=== PATIENT | female | born 1935 | race Caucasian/White ===

== ENCOUNTER 2017-02-25 10:54 | Emergency (ER) | payer MEDICARE, OTHER ==
[~2017-02-25 10:54] MED LIST: ANTIVERT 25MG T25 MG PO; ASPIR 8181 MG PO; COZAAR 25MG TAB25 MG PO; GLUCOPHAGE1000 MG PO; VITAMIN D400 UNIT PO
[2017-02-25 11:14] LABS: HEMOGLOBIN 11.9 gm/dl (12.3-15.3); RED BLOOD COUNT 3.8 M/UL (4.00-5.10); WHITE BLOOD COUNT 16.2 K/UL (4.5-11.0)
[2017-02-25 11:43] LABS: BUN/CREATININE RATIO 11 (0-10)
[2017-06-01] MEDS ORDERED: VITAMIN D250000 UNIT PO (21:19)
[2017-06-01] MEDS ORDERED: LIPITOR TAB 2020 MG PO (21:20)
== END 2017-02-25 12:59 | disposition short-term general hospital (02) ==
LOC: ER1 10:54
PROVIDERS: Emergency Medicine
DX: G45.9 Transient cerebral ischemic attack, unspecified (principal); D72.829 Elevated white blood cell count, unspecified; E11.9 Type 2 diabetes mellitus without complications; Z79.84 Long term (current) use of oral hypoglycemic drugs; Z79.82 Long term (current) use of aspirin; Z79.899 Other long term (current) drug therapy
CPT/HCPCS: 36415; 70450; 71010; 80053; 82550; 82553; 83735; 83874; 84484; 85025; 85610; 85730; 87040; 93005; 96374; 99285; J0696; J7050

== ENCOUNTER 2017-03-11 19:18 | Emergency (ER) | payer MEDICARE, OTHER ==
[2017-03-11 21:03] LABS: HEMOGLOBIN 12.1 gm/dl (12.3-15.3); RED BLOOD COUNT 3.9 M/UL (4.00-5.10); WHITE BLOOD COUNT 7.9 K/UL (4.5-11.0)
[2017-03-11 21:23] LABS: BUN/CREATININE RATIO 11 (0-10)
[2017-06-01] MEDS ORDERED: VITAMIN D250000 UNIT PO (21:19)
[2017-06-01] MEDS ORDERED: LIPITOR TAB 2020 MG PO (21:20)
== END 2017-03-12 01:25 | disposition short-term general hospital (02) ==
LOC: ER1 19:18
PROVIDERS: Student in an Organized Health Care Education/Training Program
DX: I63.9 Cerebral infarction, unspecified (principal); F41.9 Anxiety disorder, unspecified; R11.0 Nausea; E11.9 Type 2 diabetes mellitus without complications; F03.90 Unspecified dementia, unspecified severity, without behavioral disturbance, psychotic disturbance, mood disturbance, and anxiety; Z88.8 Allergy status to other drugs, medicaments and biological substances; Z79.84 Long term (current) use of oral hypoglycemic drugs; Z79.82 Long term (current) use of aspirin; Z79.899 Other long term (current) drug therapy
CPT/HCPCS: 36415; 51701; 70450; 71010; 80053; 81001; 82550; 82553; 82962; 83690; 83874; 84484; 85025; 85610; 85730; 87086; 93005; 96374; 96375; 96376; 99285; J2060; J2405

== ENCOUNTER 2021-02-24 15:44 | Observation (INO) | payer MEDICARE, MEDICAID, OTHER ==
[~2021-02-24] VITALS: Ht 157.5 cm; Wt 59.0 kg
[~2021-02-24 15:44] MED LIST changes: +ATIVAN 1MG TABLE1 MG PO; +BENADRYL25 MG PO; +FLONASE 0.05% N16 GM; +LIPITOR TAB 2020 MG PO; +MIRALAX17 GM PO; +SINGULAIR10 MG PO; +VITAMIN D250000 UNIT PO
[2021-02-24 16:32] LABS: HEMOGLOBIN 11.1 gm/dl (12.3-15.3); RED BLOOD COUNT 3.5 M/UL (4.00-5.10); WHITE BLOOD COUNT 4.8 K/UL (4.5-11.0)
[2021-02-24 17:07] LABS: BUN/CREATININE RATIO 21 (0-10)
[2021-02-24] MEDS ORDERED: IPRAT-ALBUT 0.5-3 ML INH (18:29)
[2021-02-24] MEDS ORDERED: ATIVAN0.5 MG PO (18:30)
[2021-02-24] MEDS ORDERED: SYMBICORT 16010.2 GM INH (18:31)
[2021-02-24] MEDS ORDERED: SPIRIVA HANDIH18 MCG INH (18:32)
[2021-02-24] MEDS ORDERED: TOPROL XL25 MG PO (18:32)
[2021-02-24] MEDS ORDERED: PREDNISONE10 MG PO (18:32)
[2021-02-24] MEDS ORDERED: VENTOLIN HFA 66.7 GM INH (18:33)
[2021-02-24] MEDS ORDERED: VITAMIN D250 MCG PO (18:33)
[2021-02-24] MEDS ORDERED: ATORVASTATIN CA20 MG PO (22:33)
[2021-02-24] MEDS ORDERED: COZAAR 25MG TAB25 MG PO (22:33)
[2021-02-24] MEDS ORDERED: METOPROLOL SUCC25 MG PO (22:34)
[2021-02-24] MEDS ORDERED: HYDROCHLOROTH12.5 MG PO (22:34)
[2021-02-24] MEDS ORDERED: MONTELUKAST SOD10 MG PO (22:34)
[2021-02-24] MEDS ORDERED: VITAMIN D21250 MCG PO (22:36)
[2021-02-24] MEDS ORDERED: GLUCOPHAGE 850850 MG PO (22:37)
[2021-02-25 17:32] LABS: BUN/CREATININE RATIO 17 (0-10)
[2021-02-26 04:45] LABS: BUN/CREATININE RATIO 14 (0-10)
[2021-02-26] MEDS ORDERED: ATIVAN 1MG TABLE1 MG PO (21:17)
--- NOTE | 2021-02-27 16:11 | NUR ---
REPORT CALLED TO [facility] AT [facility].
== END 2021-02-27 15:14 | disposition home or self-care (01) ==
LOC: ER1 15:44 → MED SURG 4 17:57 → CDU 17:57 → MED SURG 4 17:57
PROVIDERS: Internal Medicine Nephrology; Student in an Organized Health Care Education/Training Program; ADMIT Internal Medicine
DX: E86.0 Dehydration (principal); R55 Syncope and collapse; T46.5X5A Adverse effect of other antihypertensive drugs, initial encounter; E87.1 Hypo-osmolality and hyponatremia; G93.41 Metabolic encephalopathy; E87.6 Hypokalemia; I10 Essential (primary) hypertension; H91.90 Unspecified hearing loss, unspecified ear; K62.5 Hemorrhage of anus and rectum; N63.0 Unspecified lump in unspecified breast; E11.9 Type 2 diabetes mellitus without complications; Z20.822 Contact with and (suspected) exposure to COVID-19; Z86.73 Personal history of transient ischemic attack (TIA), and cerebral infarction without residual deficits; Z79.84 Long term (current) use of oral hypoglycemic drugs; Z79.82 Long term (current) use of aspirin; Z79.899 Other long term (current) drug therapy; Z88.8 Allergy status to other drugs, medicaments and biological substances; Z87.19 Personal history of other diseases of the digestive system
CPT/HCPCS: 36415; 70450; 72125; 80048; 80053; 81001; 82436; 82533; 82550; 82553; 82962; 83605; 83735; 83874; 83880; 83935; 84100; 84133; 84295; 84300; 84443; 84484; 85025; 93005; 96372; 97116; 97116-GP-CQ; 97161; 99285; G0378; J1650; J7131; U0002

== ENCOUNTER 2021-03-03 10:48 | Emergency (ER) | payer MEDICARE, SELFPAY ==
[~2021-03-03 10:48] MED LIST changes: +ATIVAN0.5 MG PO; +ATORVASTATIN CA20 MG PO; +GLUCOPHAGE 850850 MG PO; +HYDROCHLOROTH12.5 MG PO; +IPRAT-ALBUT 0.5-3 ML INH; +METOPROLOL SUCC25 MG PO; +MONTELUKAST SOD10 MG PO; +PREDNISONE10 MG PO; +SPIRIVA HANDIH18 MCG INH; +SYMBICORT 16010.2 GM INH; +TOPROL XL25 MG PO; +VENTOLIN HFA 66.7 GM INH; +VITAMIN D21250 MCG PO; +VITAMIN D250 MCG PO
[2021-03-03 12:01] LABS: HEMOGLOBIN 10.4 gm/dl (12.3-15.3); RED BLOOD COUNT 3.28 M/UL (4.00-5.10); WHITE BLOOD COUNT 5.2 K/UL (4.5-11.0)
[2021-03-03 12:22] LABS: BUN/CREATININE RATIO 13 (0-10)
[2021-03-03] MEDS ORDERED: MACROBID 100 M100 MG PO (14:55)
== END 2021-03-03 17:00 | disposition home or self-care (01) ==
LOC: ER1 10:48
PROVIDERS: Emergency Medicine
DX: N39.0 Urinary tract infection, site not specified (principal); E11.9 Type 2 diabetes mellitus without complications; Z20.822 Contact with and (suspected) exposure to COVID-19
CPT/HCPCS: 0240U; 70450; 71045; 80053; 81001; 83605; 83690; 83880; 85025; 93005; 99285

== ENCOUNTER 2021-07-21 16:53 | Emergency (ER) | payer MEDICARE, OTHER ==
[~2021-07-21 16:53] MED LIST changes: -ATORVASTATIN CA20 MG PO; +MACROBID 100 M100 MG PO; -MONTELUKAST SOD10 MG PO; -VITAMIN D21250 MCG PO
[2021-07-21 18:59] LABS: HEMOGLOBIN 11.8 gm/dl (12.3-15.3); RED BLOOD COUNT 3.88 M/UL (4.00-5.10); WHITE BLOOD COUNT 9.8 K/UL (4.5-11.0)
[2021-07-21 19:22] LABS: BUN/CREATININE RATIO 14 (0-10)
[2021-07-22 08:17] LABS: HEMOGLOBIN 11.9 gm/dl (12.3-15.3); RED BLOOD COUNT 3.93 M/UL (4.00-5.10); WHITE BLOOD COUNT 8.5 K/UL (4.5-11.0)
[2021-07-22 08:44] LABS: BUN/CREATININE RATIO 15 (0-10)
[2021-07-22] MEDS ORDERED: MECLIZINE HCL25 MG PO (09:06)
[2021-07-22] MEDS ORDERED: HYDROCHLOROTH12.5 MG PO (09:06)
[2021-07-22] MEDS ORDERED: COZAAR25 MG PO (09:07)
[2021-07-22] MEDS ORDERED: TOPROL XL 25 MG25 MG PO (09:07)
[2021-07-22] MEDS ORDERED: MIRALAX17 GM PO (09:07)
[2021-07-22] MEDS ORDERED: CEPHALEXIN500 MG PO (16:09)
[2021-07-22] MEDS ORDERED: ATORVASTATIN CA20 MG PO (22:33)
[2021-07-22] MEDS ORDERED: MONTELUKAST SOD10 MG PO (22:34)
[2021-07-22] MEDS ORDERED: VITAMIN D21250 MCG PO (22:36)
== END 2021-07-22 16:30 | disposition home or self-care (01) ==
LOC: ER1 16:53 → CDU 07-22 00:28 → ER1 07-22 00:28
PROVIDERS: Internal Medicine
DX: N61.0 Mastitis without abscess (principal); D64.9 Anemia, unspecified; E87.1 Hypo-osmolality and hyponatremia; E87.6 Hypokalemia; I10 Essential (primary) hypertension; E11.9 Type 2 diabetes mellitus without complications; Z90.89 Acquired absence of other organs; Z90.710 Acquired absence of both cervix and uterus; Z20.822 Contact with and (suspected) exposure to COVID-19
CPT/HCPCS: 71045; 76641-LT; 80048; 80053; 81001; 82436; 82550; 82553; 82962; 83605; 83874; 83935; 84133; 84300; 84484; 85025; 85652; 86140; 87040; 96372; 96374; 96375; 99285; G0378; J0692; J1650; J3370; J7030; J7070; U0002

== ENCOUNTER 2021-08-24 10:25 | Inpatient (IN) | payer MEDICARE, OTHER ==
[~2021-08-24] VITALS: Ht 152.4 cm; Wt 44.9 kg
[~2021-08-24 10:25] MED LIST changes: +ATORVASTATIN CA20 MG PO; +CEPHALEXIN500 MG PO; +COZAAR25 MG PO; +MECLIZINE HCL25 MG PO; +MONTELUKAST SOD10 MG PO; +TOPROL XL 25 MG25 MG PO; +VITAMIN D21250 MCG PO
[2021-08-24 11:21] LABS: HEMOGLOBIN 12.4 gm/dl (12.3-15.3); RED BLOOD COUNT 3.91 M/UL (4.00-5.10); WHITE BLOOD COUNT 18.1 K/UL (4.5-11.0)
[2021-08-24 11:49] LABS: BUN/CREATININE RATIO 11 (0-10)
[2021-08-25 06:48] LABS: HEMOGLOBIN 11.4 gm/dl (12.3-15.3); RED BLOOD COUNT 3.63 M/UL (4.00-5.10)
[2021-08-25 07:22] LABS: BUN/CREATININE RATIO 13 (0-10)
[2021-08-25 07:28] LABS: WHITE BLOOD COUNT 10.2 K/UL (4.5-11.0)
[2021-08-26 07:08] LABS: HEMOGLOBIN 11.9 gm/dl (12.3-15.3); RED BLOOD COUNT 3.84 M/UL (4.00-5.10)
[2021-08-26 07:24] LABS: WHITE BLOOD COUNT 7.1 K/UL (4.5-11.0)
[2021-08-26 07:42] LABS: BUN/CREATININE RATIO 15 (0-10)
[2021-08-27 07:39] LABS: BUN/CREATININE RATIO 15 (0-10)
[2021-08-27] MEDS ORDERED: CEFDINIR300 MG PO (08:52)
[2021-08-27] MEDS ORDERED: GLUCOPHAGE 850850 MG PO (08:52)
[2021-08-27] MEDS ORDERED: SULFAMETHOXAZO1 EACH PO (08:52)
== END 2021-08-27 12:55 | disposition home health service (06) | DRG 871 ==
LOC: ER1 10:25 → MED SURG 4 13:15 → CDU 13:15 → MED SURG 4 17:43
PROVIDERS: Physician Assistant; Student in an Organized Health Care Education/Training Program; ADMIT Internal Medicine
DX: A41.9 Sepsis, unspecified organism (principal); G93.41 Metabolic encephalopathy; Z20.822 Contact with and (suspected) exposure to COVID-19; E87.1 Hypo-osmolality and hyponatremia; E87.2 Acidosis; F03.90 Unspecified dementia, unspecified severity, without behavioral disturbance, psychotic disturbance, mood disturbance, and anxiety; C50.912 Malignant neoplasm of unspecified site of left female breast; N61.0 Mastitis without abscess; E11.9 Type 2 diabetes mellitus without complications; H91.90 Unspecified hearing loss, unspecified ear; Z66 Do not resuscitate; F17.210 Nicotine dependence, cigarettes, uncomplicated; J30.9 Allergic rhinitis, unspecified; E86.0 Dehydration; I10 Essential (primary) hypertension; M51.36 Other intervertebral disc degeneration, lumbar region; Z86.73 Personal history of transient ischemic attack (TIA), and cerebral infarction without residual deficits; Z79.82 Long term (current) use of aspirin; Z90.710 Acquired absence of both cervix and uterus; Z90.49 Acquired absence of other specified parts of digestive tract
CPT/HCPCS: 36415; 51702; 70450; 71045; 71250; 80048; 80053; 80202; 81001; 82550; 82553; 82962; 83605; 83874; 84484; 85025; 87040; 87086; 93005; 99285; J0696; J1630; J1650; J3370; J7030; J7070; U0002